=== PATIENT | female | born 1990 | race Two or more races ===

== ENCOUNTER 2016-12-27 08:40 | Emergency (ER) | payer MEDICAID ==
[~2016-12-27] VITALS: Ht 154.9 cm; Wt 68.0 kg
[~2016-12-27 08:40] MED LIST: AMOX-263 PO; ONDA8TAB9 PO; TRAM50TA2 PO
[2016-12-27 09:20] LABS: Basophils # (auto) 0 uL; Basophils % (auto) 0.4 % (0.0-2.0); Eosinophils # (auto) 0 uL; Eosinophils % (auto) 0.4 % (0.0-7.0); Hematocrit 41.3 % (36.0-46.0); Hemoglobin 13.4 g/dL (12.2-16.2); Lymphocytes # (auto) 2.1 uL; Lymphocytes % (auto) 21.1 % (10.0-50.0); Mean Corpuscular Hemoglobin 29.4 pg (28.0-32.0); Mean Corpuscular Hgb Conc. 32.5 g/dL (32.0-36.0); Mean Corpuscular Volume 90.2 fL (80.0-100.0); Mean Platelet Volume 10.2 fL (7.4-10.4); Monocytes # (auto) 0.5 uL; Monocytes % (auto) 4.8 % (0.0-12.0); Neutrophils # (auto) 7.2 uL; Neutrophils % (auto) 73.3 % (37.0-80.0); Platelet Count (auto) 254 10^3/uL (140-450); Red Cell Distribution Width 14.1 % (11.6-16.0); White Blood Cell 9.8 10^3/uL (4.4-10.8)
[2016-12-27 09:51] LABS: BUN/Creatinine Ratio 21.5; Bilirubin, Total 0.6 mg/dL (0.2-1.0); Calcium 8.8 mg/dL (8.5-10.1); Potassium 3.9 mmol/L (3.5-5.1); Total Protein 8.2 g/dL (6.4-8.2)
[2016-12-27] MEDS ORDERED: SODIUM CHLORIDE 0.9% 1,000 ML IVB ONE (11:51)
[2016-12-27] MEDS ORDERED: MECLIZINE HCL 25 MG TAB PO ONE (12:00)
[2016-12-27 12:11] VITALS: BP 125/81
[2016-12-27 12:49] LABS: Magnesium 2.2 mg/dL (1.6-2.6)
[2016-12-27 13:03] LABS: Urine Bilirubin Negative (Negative); Urine Blood Negative /uL (Negative); Urine Color Yellow (Yellow); Urine Glucose Normal (Normal); Urine Mucus FEW (None Seen); Urine Nitrite Negative (Negative); Urine RBC <1 /hpf (0 - 4); Urine Squamous Epithelial Cell FEW /hpf (<5); Urine Urobilinogen Normal (Negative)
[2016-12-27 13:06] LABS: Urine Ketone 1+ (Negative)
== END 2016-12-27 15:21 | disposition home or self-care (01) ==
LOC: ER 08:40
DX: R51 Headache (principal); H81.13 Benign paroxysmal vertigo, bilateral; N83.209 Unspecified ovarian cyst, unspecified side
CPT/HCPCS: 36415; 70450; 71020; 80053; 80320; 81001; 81025; 82962; 83735; 85025; 93005; 96360; 96361; 99285; J7030; J8597

== ENCOUNTER 2017-06-28 16:05 | Emergency (ER) | payer MEDICAID ==
[~2017-06-28] VITALS: Ht 154.9 cm; Wt 72.6 kg
[2017-06-28 16:10] VITALS: BP 127/83
[2017-06-28 16:49] LABS: Urine Bilirubin Negative (Negative); Urine Blood Negative /uL (Negative); Urine Color Yellow (Yellow); Urine Glucose Normal (Normal); Urine Ketone Negative (Negative); Urine Mucus FEW (None Seen); Urine Nitrite Negative (Negative); Urine RBC 1 /hpf (0 - 4); Urine Squamous Epithelial Cell FEW /hpf (<5); Urine Urobilinogen Normal (Negative)
== END 2017-06-28 17:44 | disposition home or self-care (01) ==
LOC: ER 16:07
DX: R35.0 Frequency of micturition (principal); R10.30 Lower abdominal pain, unspecified; R39.15 Urgency of urination; M54.5 Low back pain
CPT/HCPCS: 74176; 81001; 81025